=== PATIENT | male | born 1935 | race Caucasian/White ===

== ENCOUNTER 2023-11-19 04:52 | Day surgery (SDC) | payer OTHER ==
[2023-11-16 14:23] VITALS: BMI 28.6
[2023-11-19 09:01] VITALS: TEMP 97.9
[2023-11-19 09:22] VITALS: RESP 18
[2023-11-19 10:07] VITALS: BP 130/52; PULSE 49
== END 2023-11-19 10:00 | disposition home or self-care (01) ==
LOC: JASU-ENDO 04:52
PROVIDERS: ATTEND Internal Medicine Gastroenterology
PROC: 0DB98ZX Excision of Duodenum, Via Natural or Artificial Opening Endoscopic, Diagnostic (ICD-10-PCS; 2023-11-19)
PROC: 0DB78ZX Excision of Stomach, Pylorus, Via Natural or Artificial Opening Endoscopic, Diagnostic (ICD-10-PCS; 2023-11-19)
PROC: 0DB68ZX Excision of Stomach, Via Natural or Artificial Opening Endoscopic, Diagnostic (ICD-10-PCS; 2023-11-19)
PROC: 0DB48ZX Excision of Esophagogastric Junction, Via Natural or Artificial Opening Endoscopic, Diagnostic (ICD-10-PCS; 2023-11-19)
PROC: 0DBC8ZX Excision of Ileocecal Valve, Via Natural or Artificial Opening Endoscopic, Diagnostic (ICD-10-PCS; principal; 2023-11-19 08:00)
DX: D50.9 Iron deficiency anemia, unspecified (principal); K64.8 Other hemorrhoids; D12.0 Benign neoplasm of cecum; K29.50 Unspecified chronic gastritis without bleeding; K21.00 Gastro-esophageal reflux disease with esophagitis, without bleeding; D12.8 Benign neoplasm of rectum
CPT/HCPCS: 88305-TC; 88342-TC